=== PATIENT | male | born 1965 | race African-American/Black ===

== ENCOUNTER 2017-12-15 12:21 | Emergency (ER) | payer OTHER, MEDICARE ==
[~2017-12-15] VITALS: Ht 180.3 cm; Wt 80.0 kg
[2017-12-15] MEDS ORDERED: ZIAGEN 300 MG300 MG PO (14:14)
[2017-12-15] MEDS ORDERED: FOSRENOL1000 MG PO (14:14)
[2017-12-15] MEDS ORDERED: TIVICAY50 MG PO (14:15)
[2017-12-15] MEDS ORDERED: PRILOSEC OTC20 MG PO (14:16)
[2017-12-15] MEDS ORDERED: LAMIVUDINE100 MG PO (14:17)
[2017-12-15] MEDS ORDERED: NICOTINE T14 MG/241 TD (14:18)
[2017-12-15] MEDS ORDERED: [UNRECOGNIZED DRUG - OTHER] PO (14:19)
[2017-12-15] MEDS ORDERED: COLACE100 MG PO (14:19)
[2017-12-15] MEDS ORDERED: AMLODIPINE5 MG PO (14:19)
[2017-12-15] MEDS ORDERED: HYDRALAZINE25 MG PO (14:20)
[2017-12-15] MEDS ORDERED: TAMSULOSIN0.4 MG PO (14:22)
[2017-12-15] MEDS ORDERED: RENA-VIT1 PO (14:22)
[2017-12-15] MEDS ORDERED: [UNRECOGNIZED DRUG - OTHER] TOP (14:26)
[2017-12-15 16:02] LABS: HEMATOCRIT 34.6 % (39.0-50.0); HEMOGLOBIN 11.6 g/dl (14.0-18.0); MEAN CELL VOLUME 95.6 fL CALC (80.0-100.0); MEAN CORPUSCULAR HGB CONC 33.5 g/L CALC (32.0-36.0); NEUT# 4.4 thou/uL (1.82-7.42); RED BLOOD COUNT 3.62 mill/uL (4.70-6.10); RED CELL DISTRI WIDTH 13.7 % (11.5-15.5)
[2017-12-15 16:18] LABS: ALBUMIN 4.5 g/dL (3.2-5.0); BILIRUBIN, TOTAL 0.4 mg/dL (0.0-1.4); CALCIUM 10.1 mg/dL (8.4-10.2); TOTAL PROTEIN 7.6 g/dL (6.3-8.2)
[2017-12-15 16:23] LABS: CREATININE 5.9 mg/dL (0.7-1.3)
[2017-12-15 19:21] VITALS: BP 147/68
== END 2017-12-15 19:21 | disposition short-term general hospital (02) | DRG 392 ==
LOC: ED 12:21
PROVIDERS: Emergency Medicine
DX: R10.13 Epigastric pain (principal); R13.10 Dysphagia, unspecified; R11.2 Nausea with vomiting, unspecified; R19.09 Other intra-abdominal and pelvic swelling, mass and lump